=== PATIENT | male | born 1930 | race Caucasian/White ===

== ENCOUNTER 2016-08-17 21:50 | Emergency (ER) | payer OTHER ==
[~2016-08-17] VITALS: Ht 170.2 cm; Wt 80.5 kg
[~2016-08-17 21:50] MED LIST: ASPIRIN81 M1 PO; CHERATUSSIN AC473 ML PO; PRIMIDONE250 MG PO; SULFAMETHOXAZO1 EAC5 PO; TENORMIN25 MG PO; TERAZOSIN HCL5 MG PO
[2016-08-17 22:13] LABS: HEMATOCRIT 36.2 % (38.0-50.0); MCV 93.5 FL (86-99); MEAN PLAT.VOLUME 10.7 uM^3 (9.0-12.4); PLATELET COUNT 149 K/uL (156-360); RBC DIS.WIDTH-CV 13.3 % (11.8-14.6); RBC DIS.WIDTH-SD 45.6 % (39-53); RED BLOOD COUNT 3.87 M/uL (4.00-5.50); WHITE BLOOD COUNT 5.8 K/uL (4.1-10.2)
[2016-08-17 22:23] LABS: CHLORIDE 109 mEq/L (99-109); POTASSIUM 3.9 mEq/L (3.7-5.4)
[2016-08-17 22:24] LABS: SODIUM 141 mEq/L (136-147)
[2016-08-17 22:26] LABS: GLUCOSE 108 mg/dL (70-99)
[2016-08-17 22:27] LABS: ANION GAP 7 MEQ/L (2-14)
[2016-08-17 22:28] LABS: TOTAL BILIRUBIN 0.3 mg/dL (0.0-1.0)
[2016-08-17 22:29] LABS: ALKALINE PHOSPHATASE 64 IU/L (3-129); GFR ESTIMATE (CALCULATED) > 59 mL/min/
[2016-08-17 22:31] LABS: UREA NITROGEN (BUN) 18 mg/dL (9-23)
[2016-08-17 22:33] LABS: LIPASE 11 U/L (1.0-51.0)
[2016-08-17 22:33] LABS: TROP-I INTERPRETATION NEGATIVE; TROPONIN-I 0.03 ng/mL (0.0-0.30)
[2016-08-17 22:57] LABS: ADD MIUA? NO; BILIRUBIN NEGATIVE; BLOOD NEGATIVE; COLOR YELLOW ((YELLOW)); GLUCOSE (STRIP) NEGATIVE; KETONES NEGATIVE; LEUKOCYTES NEGATIVE; NITRITE NEGATIVE; PROTEIN (STRIP) NEGATIVE; UCUL ADDED? NO; UROBILINOGEN 0.2 MG/DL (0.2-1.0)
[2016-08-18 00:10] VITALS: BP 165/83
== END 2016-08-18 00:14 | disposition home or self-care (01) ==
LOC: EME 21:50
DX: R10.13 Epigastric pain (principal); I10 Essential (primary) hypertension; K21.9 Gastro-esophageal reflux disease without esophagitis; Z95.1 Presence of aortocoronary bypass graft; Z87.891 Personal history of nicotine dependence
CPT/HCPCS: 74177; 80053; 81003; 83690; 84484; 85027; 93005; 99281; 99284; J7030